=== PATIENT | female | born 1940 | race Caucasian/White ===

== ENCOUNTER 2016-07-30 13:50 | Inpatient (IN) | payer MEDICARE ==
[~2016-07-30] VITALS: Ht 165.1 cm; Wt 114.0 kg
[2016-07-31] MEDS ORDERED: COLA100C3 PO (11:21)
[2016-07-31] MEDS ORDERED: MULT-135 PO (11:21)
[2016-07-31] MEDS ORDERED: WARF-23 PO (11:21)
--- NOTE | 2016-08-01 14:46 | MH ---
cc: Ede GRIMALDO M.D. DATE OF ADMISSION: 08/06/2016 ADMITTING DIAGNOSIS Osteoarthritic degeneration left knee, now being admitted for left total knee arthroplasty. HISTORY OF PRESENT ILLNESS This pleasant 75-year-old female is being admitted today for left total knee arthroplasty due to severe painful osteoarthritic degeneration left knee. PAST MEDICAL HISTORY 1. Right total hip in August 2012; did develop a blood clot for which she is on Coumadin and stopped before surgery. 2. Stage II kidney disease. MEDICATIONS Current medications: 1. Coumadin 5 mg a day; which is stopped before surgery. 2. Colace. 3. Fiber Sure. 4. Multivitamins. 5. Benadryl. 6. Hydrocodone occasionally as needed for pain. PAST SURGICAL HISTORY Other than the hip replacement include: 1. Tonsillectomy 1952. 2. Hysterectomy 1976. REVIEW OF SYSTEMS Noncontributory. FAMILY HISTORY Noncontributory. SOCIAL HISTORY She does not smoke or drink. ALLERGIES No known allergies. PHYSICAL EXAMINATION GENERAL: We find a 75-year-old female, well-developed, well-nourished, oriented x3, complaining of pain in her left knee. VITAL SIGNS: Blood pressure 130/82, pulse 69 and regular, respirations 20, temperature 97.9, pulse oximetry 96% on room air. HEENT: PERRLA. EOMI. Ears, nose and mouth clear. NECK: Supple. LUNGS: Clear. HEART: Regular rate. ABDOMEN: Soft. Positive bowel sounds. Nontender. EXTREMITIES: Her left knee has crepitance on range of motion. She is neurovascularly intact to her toes. IMPRESSION The impression at this time is osteoarthritic degeneration left knee. PLAN Admission for left total knee arthroplasty today. The patient is given prescriptions for postoperative pain and anticoagulation control in the office, and was told to stop the Coumadin several days before surgery and will have a stat. repeat INR and PT on the day of admission. JMD ALONZO Monreal/ARNALDO /2:15 PM /2:29 PM
[2016-08-03] MEDS ORDERED: CORNPOW11 PO (14:24)
[2016-08-06] MEDS ORDERED: INSULIN HUMAN REGULAR 1,000 UNITS/10 ML VIAL SQ PRN (06:00)
[2016-08-06] MEDS ORDERED: METOPROLOL TARTRATE 25 MG TAB PO PRN (06:00)
[2016-08-06] MEDS: CHLORHEXIDINE GLUCONATE 4% SOLN 120 ML BTL TOP SCH (06:15)
[2016-08-06] MEDS: BUPIVACAINE LIPOSO PF 1.3% INJ 20 ML, BUPIVACAINE PF 0.25% INJ 20 ML in SODIUM CHLORIDE... P-ARTICULR SCH ×2 (07:00→11:17)
[2016-08-06] MEDS ORDERED: VITA100064 PO (07:00)
[2016-08-06 07:08] VITALS: BP 153/74; PULSE 76; RESP 20; TEMP 97.6; O2SAT 96
[2016-08-06 07:27] LABS: PROTHROMBIN TIME - PATIENT 10.7 SEC (9.8-11.6)
[2016-08-06 07:31] LABS: APTT (PATIENT) 25.7 SEC (24.3-30.1)
[2016-08-06] MEDS ORDERED: VANCOMYCIN 1000 MG/NS 250 ML (for <70 kg) IV SCH ×2 (08:00)
[2016-08-06] MEDS ORDERED: NALOXONE HCL 0.4 MG/ML AMP IV PRN (08:15)
[2016-08-06] MEDS ORDERED: diphenhydrAMINE HCL 50 MG/ML VIAL IV PRN (08:15)
[2016-08-06] MEDS ORDERED: SODIUM CHLORIDE 0.9% FLUSH 5 ML FLUSH IVF PRN (08:15)
[2016-08-06] MEDS ORDERED: Post-op Orders (for Pharmacy) MISC XX ONE (08:15)
[2016-08-06] MEDS ORDERED: TRANEXAMIC ACID INJ 0 MG in SODIUM CHLORIDE 0.9% INJ 100 ML IV SCH (08:15)
[2016-08-06] MEDS ORDERED: ACETAMINOPHEN 325 MG TAB PO PRN (08:15)
--- NOTE | 2016-08-06 08:18 | HHI.FF ---
Face to Face Verification Diagnosis: (1) Status post total left knee replacement Physical Therapy Gait training Knee: Total knee, Protocol: Left, Full weight bearing Canvas Knee Splint: When in bed & 2 pillows btw thighs Nursing RN: 3 days/week x 2 weeks Nursing: Lul teaching, Dressing changes Dressing Changes: Daily dressing change, 4x4s, Gauze, Paper tape I have seen patient Sharon Pa on 08/06/16. My clinical findings support the need for the requested home health care services because: Limited ability to care for self High risk of falls I certify that my clinical findings support that this patient is homebound because: Unsteady gait/balance Ede Marks MD Aug 06, 2016 08:18
[2016-08-06] MEDS ORDERED: MISC-163 (08:20)
[2016-08-06] MEDS ORDERED: CPMMACHINE (08:20)
[2016-08-06] MEDS ORDERED: WALKER WHEELS/F1 MIS (08:20)
[2016-08-06] MEDS ORDERED: ceFAZolin 2 GM PREMIX 50 ML IV SCH (08:30)
--- NOTE | 2016-08-06 08:51 | PD.CONS ---
HPI Service [facility] Hospitalists Consult Requested By Dr. Guillaume Marks Reason for Consult Medical Management Primary Care Physician Scottie Robertson MD Diagnoses: History of Present Illness Mrs. Pa is a pleasant 75 y/o female with osteoarthritis, CKD, stage II, hx of bilateral PE and previous DVT after right hip arthroplasty in 2012. Pt was admitted to [facility] for elective left knee total arthroplasty performed on with Dr. Marks. [facility] Hospitalist team was consulted to help with medical management. Pt takes Coumadin 5mg daily for her hx of DVT/PE and this has been held prior to surgery. Pt has Lovenox 30mg SQ Q12H ordered post-operatively. Pt is seen in PACU and is recovering well. Vital signs are stable. No complaints at the time of our examination. Review of Systems Constitutional: DENIES: Fever, Chills Respiratory: DENIES: Cough, Shortness of breath Cardiovascular: DENIES: Chest pain, Palpitations Gastrointestinal: DENIES: Abdominal pain, Nausea, Vomiting Genitourinary: DENIES: Hematuria Neurologic: DENIES: Headache Past Family Social History Past Medical History Bilateral DVT and PE in 2011 and DVT in 2012 after hip surgery Anxiety/Depression Osteoarthritis Low back pain/sciatica Past Surgical History Right total hip arthroplasty on 09/08/[address] Marks [facility] with BSO Right knee arthroscopy Tonsillectomy/Adenoidectomy Reported Medications Vitamin D 1,000 Units PO DAILY Fiber Powder 1 Pkt PO DAILY Multi Vitamin 1 Tab PO DAILY Warfarin 5 Mg PO DAILY Colace 100 Mg PO DAILY Allergies: Coded Allergies: No Known Allergies (Unverified , 08/06/16) Family History Noncontributory Social History Denies any alcohol, tobacco or illicit drug use Physical Exam Vital Signs Vital Signs Date Time Temp Pulse Resp B/P Pulse Ox O2 Delivery O2 Flow Rate FiO2 08/06/16 07:08 97.6 76 20 153/74 96 Physical Exam GENERAL: This is a well-nourished, well-developed patient, in no apparent distress. HEENT: Atraumatic. Normocephalic. No temporal or scalp tenderness. No scleral icterus. Airway patent. NECK: Trachea midline, supple, nontender. CARDIO: Regular. RESP: CTA bilaterally. No wheezes, rales, or rhonchi. ABD: +BS, soft, non-tender, nondistended. EXT: Extremities without clubbing, cyanosis, or edema. NEURO: Awake and alert. Motor and sensory grossly within normal limits. Normal speech. Laboratory Laboratory Tests Test 08/06/16 07:00 Prothrombin Time 10.7 Prothromb Time International 1.0 Ratio Activated Partial 25.7 Thromboplast Time Assessment and Plan Problem List: (1) Osteoarthritis of left knee Status: Chronic Plan: - Pt s/p left total knee arthroplasty on 08/06/[address] Marks - Post-op pain control per Ortho - PT daily - IS - Constipation precautions - DVT prophylaxis with Lovenox 30mg SQ Q12H ordered and will resume the pts Coumadin (2) History of DVT (deep vein thrombosis) Status: Chronic Plan: - Pt with hx of DVT and PE on Coumadin as an outpt (3) Chronic kidney disease Status: Chronic Plan: - Stable. - Monitor Assessment and Plan Patient examined. Assessment and plan formulated with Carole Clark PA-C. I agree with the above. Will resume coumadin 08/07/16 Problem Qualifiers (1) Chronic kidney disease: Qualified Code: N18.2 - Chronic kidney disease, stage 2 (mild) Carole Clark Aug 06, 2016 08:51 Thomas Kearney DO Aug 06, 2016 14:14
[2016-08-06] MEDS ORDERED: MIDAZOLAM HCL 5 MG/5 ML VIAL ONE (08:52)
[2016-08-06] MEDS: SODIUM CHLORIDE 0.9% FLUSH 5 ML FLUSH IVF SCH ×2 (09:00→21:00)
[2016-08-06] MEDS ORDERED: MULTIVITAMIN TAB PO SCH (09:00)
[2016-08-06] MEDS ORDERED: DOCUSATE SODIUM 100 MG CAP PO SCH (09:00)
[2016-08-06] MEDS ORDERED: MORPHINE SULFATE 30 MG/30 ML PCA IV SCH (09:00)
[2016-08-06] MEDS: CHOLECALCIFEROL (VIT D3) 1000 UNIT TAB PO SCH (09:00)
[2016-08-06] MEDS: PSYLLIUM FIBER SF/GF 6 GM POWD PKT PO SCH (09:15)
[2016-08-06] MEDS ORDERED: SODIUM CHLORID 0.9% 500 ML IV SCH (09:30)
[2016-08-06] MEDS: SODIUM CHLORIDE 0.9% IV SCH ×2 (09:30→11:08)
[2016-08-06] MEDS: TRANEXAMIC ACID IV SCH ×2 (09:30→11:08)
[2016-08-06] MEDS ORDERED: LACTATED RINGER'S 1000 ML IV SCH (09:30)
[2016-08-06] MEDS ORDERED: ceFAZolin INJ 1,000 MG VIAL XX ONE (11:28)
[2016-08-06] MEDS ORDERED: BUPIVACAINE HCL PF 0.5% 30 ML VIAL NB ONE (12:18)
[2016-08-06] MEDS ORDERED: BUPIVACAINE HCL PF 0.25% 30 ML VIAL NB ONE (12:18)
[2016-08-06] MEDS ORDERED: PROPOFOL 200 MG/20 ML AMP IV ONE (12:30)
[2016-08-06] MEDS ORDERED: TRANEXAMIC ACID IV SCH (12:30)
[2016-08-06] MEDS ORDERED: ePHEDrine/NS 50 MG/5 ML SYR IV ONE (12:30)
[2016-08-06] MEDS ORDERED: LACTATED RINGER'S 1000 ML INJ 1,000 ML IV ONE (12:30)
[2016-08-06] MEDS ORDERED: NEOSTIGMINE 3 MG/3 ML SYR IV ONE (12:30)
[2016-08-06] MEDS ORDERED: ONDANSETRON HCL 4 MG/2 ML VIAL IV PUSH ONE (12:30)
[2016-08-06] MEDS ORDERED: SODIUM CHLORIDE 0.9% IV SCH (12:30)
[2016-08-06] MEDS ORDERED: DO NOT ADM ANY ANTICOAGULANT DRUGS XX PRN (13:58)
[2016-08-06] MEDS: PCA - TOTAL MG MORPHINE DELIVERED PER SHIFT SCH ×2 (14:00→22:00)
[2016-08-06] MEDS ORDERED: fentaNYL CITRATE 250 MCG/5 ML AMP ONE (14:03)
--- NOTE | 2016-08-06 15:06 | RADRPT ---
EXAM DATE/TIME: 08/06/2016 14:21 [place] COMPARISON: No previous studies available for comparison. INDICATIONS : Eval post total left knee replacement MEDICAL HISTORY : None. SURGICAL HISTORY : Total knee replacement, left. ENCOUNTER: Initial ACUITY: 1 day PAIN SCORE: 4/10 LOCATION: Left Knee FINDINGS: AP and lateral views of the knee following arthroplasty reveals a prosthesis in anatomic alignment. F racture is not appreciated. Surgical drain is evident CONCLUSION: Status post total knee arthroplasty. Angel Nur MD FACR Board Certified Radiologist. This report was verified electronically.
[2016-08-06] MEDS: LACTATED RINGER'S 1000 ML INJ 1,000 ML IV SCH (15:49)
[2016-08-06 16:19] VITALS: BP 135/63; PULSE 87; RESP 18; TEMP 96; O2SAT 99
[2016-08-06 20:00] VITALS: BP 136/64; PULSE 81; RESP 17; TEMP 96.1; O2SAT 100
[2016-08-07] VITALS (7 sets, daily range): BP systolic 100–137; BP diastolic 55–63; PULSE 91–103; RESP 16–18; TEMP 97.2–99.3; O2SAT 95–100
[2016-08-07] MEDS: LACTATED RINGER'S 1000 ML INJ 1,000 ML IV SCH ×3 (00:03→22:30)
[2016-08-07] MEDS: ONDANSETRON HCL 4 MG/2 ML VIAL IVP PRN ×2 (00:03→09:45)
[2016-08-07] MEDS ORDERED: PADIMATE (CHAPSTICK) 4.5 GM TUBE TOPICAL PRN (00:30)
[2016-08-07 05:19] LABS: HEMATOCRIT 34.2 % (35.0-46.0); REVIEW FLAG FINAL
[2016-08-07] MEDS: PCA - TOTAL MG MORPHINE DELIVERED PER SHIFT SCH ×3 (05:49→21:58)
[2016-08-07] MEDS: CHLORHEXIDINE GLUCONATE 4% SOLN 120 ML BTL TOP SCH (06:15)
[2016-08-07] MEDS: PSYLLIUM FIBER SF/GF 6 GM POWD PKT PO SCH (09:46)
[2016-08-07] MEDS: SODIUM CHLORIDE 0.9% FLUSH 5 ML FLUSH IVF SCH ×2 (09:46→20:15)
[2016-08-07] MEDS: CHOLECALCIFEROL (VIT D3) 1000 UNIT TAB PO SCH (09:47)
[2016-08-07] MEDS ORDERED: INFLUENZA VIRUS VACCINE (QUADRIVALENT) 0.5 ML SYR IM ONE (10:00)
--- NOTE | 2016-08-07 10:33 | PD.ORT.PN ---
Subjective Subjective Remarks patient painful today and nauseated. Objective Vitals Vital Signs Date Time Temp Pulse Resp B/P Pulse Ox O2 Delivery O2 Flow Rate FiO2 08/07/16 08:37 99 Nasal Cannula 3.00 08/07/16 07:37 99.3 98 17 123/56 98 08/07/16 05:49 20 08/07/16 04:00 99.3 99 17 137/63 98 08/07/16 00:00 97.8 95 17 129/59 100 08/06/16 22:00 20 08/06/16 21:30 Nasal Cannula 3.00 08/06/16 20:00 96.1 81 17 136/64 100 08/06/16 18:30 Nasal Cannula 2.00 08/06/16 16:19 96.0 87 18 135/63 99 08/06/16 16:00 97.8 83 15 140/65 98 Nasal Cannula 2 08/06/16 15:30 82 15 141/64 98 Nasal Cannula 2 08/06/16 15:28 15 08/06/16 15:00 90 15 140/64 98 Nasal Cannula 2 08/06/16 14:45 89 16 140/65 97 Nasal Cannula 2 08/06/16 14:30 81 16 142/66 96 Nasal Cannula 2 08/06/16 14:15 90 15 139/65 97 Nasal Cannula 2 08/06/16 14:00 18 08/06/16 13:58 97.4 91 15 143/71 95 Nasal Cannula 2 I/O 08/06/16 08/06/16 08/06/16 08/07/16 08/07/16 08/07/16 07:00 15:00 23:00 07:00 15:00 23:00 Intake Total 1100 ml 490 ml 1574 ml Output Total 100 ml 0 ml 300 ml Balance 1000 ml 490 ml 1274 ml Intake Oral 240 ml 240 ml IV Total 250 ml 1334 ml Other 1100 ml Output Urine Total 0 ml 0 ml 300 ml Estimated Blood Loss 100 ml # Voids 2 1 # Bowel Movements 0 0 Result Diagram: 08/07/16 0447 Objective Remarks Dressing dry and intact. Block wearing off. No calf tenderness. Assessment & Plan Ortho Post Op Day #: 1 Problem List: Assessment and Plan OOB, PT, wound care. 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 Ede Marks MD Aug 07, 2016 10:33
[2016-08-07] MEDS: ENOXAPARIN SODIUM 30 MG/0.3 ML SYRINGE SQ SCH (13:20)
[2016-08-07] MEDS: ACETAMINOPHEN/HYDROcodone 325 MG/7.5 MG TAB PO PRN ×3 (13:31→21:58)
[2016-08-07] MEDS: WARFARIN SOD 5 MG TAB PO SCH (15:31)
[2016-08-07] MEDS: MULTIVITAMINS/MINERALS THERAPEUTIC TAB PO SCH (20:15)
[2016-08-07] MEDS: DOCUSATE SODIUM 100 MG CAP PO SCH (20:15)
[2016-08-07] MEDS: TEMAZEPAM 15 MG CAP PO PRN (20:19)
[2016-08-08] VITALS: BP 118/56; PULSE 92; RESP 16; TEMP 96.8; O2SAT 94
[2016-08-08] MEDS: ENOXAPARIN SODIUM 30 MG/0.3 ML SYRINGE SQ SCH ×2 (00:12→12:29)
[2016-08-08] MEDS: PCA - TOTAL MG MORPHINE DELIVERED PER SHIFT SCH ×3 (04:51→22:00)
[2016-08-08] MEDS: CHLORHEXIDINE GLUCONATE 4% SOLN 120 ML BTL TOP SCH (04:52)
[2016-08-08] MEDS: ACETAMINOPHEN/HYDROcodone 325 MG/7.5 MG TAB PO PRN ×4 (06:30→21:46)
[2016-08-08 06:51] LABS: AUTOMATED NEUTROPHIL # 5.4 TH/MM3 (1.8-7.7); BASOPHIL % 0.4 % (0.0-2.0); EOSINOPHIL # 0.1 TH/MM3 (0-0.4); EOSINOPHIL % 1.6 % (0.0-4.0); HEMATOCRIT 33.6 % (35.0-46.0); HEMO FLAGS DIFF FINAL; LYMPH % 22.1 % (9.0-44.0); LYMPHOCYTE # 1.8 TH/MM3 (1.0-4.8); MEAN CELL VOLUME 95.2 FL (80.0-100.0); MEAN CORPUSCULAR HEMOGLOBIN 30.8 PG (27.0-34.0); MEAN CORPUSCULAR HGB CONC 32.3 % (32.0-36.0); MONO % 11.3 % (0.0-8.0); NEUT % 64.6 % (16.0-70.0); PLATELET COUNT 182 TH/MM3 (150-450); RED BLOOD COUNT 3.53 MIL/MM3 (4.00-5.30); RED CELL DISTRIBUTION WIDTH 14.2 % (11.6-17.2); WHITE BLOOD COUNT 8.3 TH/MM3 (4.0-11.0)
[2016-08-08 06:58] LABS: HEMATOCRIT 33.3 % (35.0-46.0); REVIEW FLAG FINAL
[2016-08-08 08:00] VITALS: BP 104/57; PULSE 100; RESP 16; TEMP 97.7; O2SAT 92
--- NOTE | 2016-08-08 08:22 | PD.ORT.PN ---
Subjective Subjective Remarks patient still painful today Objective Vitals Vital Signs Date Time Temp Pulse Resp B/P Pulse Ox O2 Delivery O2 Flow Rate FiO2 08/08/16 00:00 96.8 92 16 118/56 94 08/07/16 20:56 Room Air 08/07/16 20:00 97.2 103 16 115/56 95 08/07/16 15:24 98.0 93 18 100/55 95 08/07/16 13:18 18 08/07/16 11:32 98.8 91 17 126/58 96 08/07/16 09:55 98 Room Air 08/07/16 08:37 99 Nasal Cannula 3.00 I/O 08/07/16 08/07/16 08/07/16 08/08/16 08/08/16 08/08/16 07:00 15:00 23:00 07:00 15:00 23:00 Intake Total 1574 ml 2064 ml 240 ml 240 ml Output Total 300 ml 150 ml Balance 1274 ml 1914 ml 240 ml 240 ml Intake Oral 240 ml 120 ml 240 ml 240 ml IV Total 1334 ml 1944 ml Output Urine Total 300 ml 150 ml # Voids 1 1 1 2 # Bowel Movements 0 0 0 0 Result Diagram: 08/08/16 0538 Other Results Laboratory Tests Test 08/08/16 05:38 Prothrombin Time 11.0 SEC (9.8-11.6) Prothromb Time International 1.0 RATIO Ratio Objective Remarks Dressing dry and intact. Block worn off. No calf tenderness. Assessment & Plan Ortho Post Op Day #: 2 Problem List: Assessment and Plan OOB, PT, wound care. Ede Marks MD Aug 08, 2016 08:22
[2016-08-08] MEDS: SODIUM CHLORIDE 0.9% FLUSH 5 ML FLUSH IVF SCH ×2 (09:00→20:10)
[2016-08-08] MEDS: MULTIVITAMINS/MINERALS THERAPEUTIC TAB PO SCH ×2 (09:40→20:10)
[2016-08-08] MEDS: DOCUSATE SODIUM 100 MG CAP PO SCH ×2 (09:40→20:10)
[2016-08-08] MEDS: PSYLLIUM FIBER SF/GF 6 GM POWD PKT PO SCH (09:40)
[2016-08-08] MEDS: CHOLECALCIFEROL (VIT D3) 1000 UNIT TAB PO SCH (09:40)
[2016-08-08] MEDS ORDERED: BACITRACIN OINT 0.9 GM PKT TOP PRN (10:15)
[2016-08-08] MEDS: LACTATED RINGER'S 1000 ML INJ 1,000 ML IV SCH ×2 (11:00→23:30)
[2016-08-08 11:51] VITALS: BP 130/53; PULSE 89; RESP 17; TEMP 97; O2SAT 91
[2016-08-08 16:05] VITALS: BP 125/58; PULSE 90; RESP 16; TEMP 96; O2SAT 94
[2016-08-08] MEDS: WARFARIN SOD 5 MG TAB PO SCH (17:17)
[2016-08-08 20:00] VITALS: BP 129/58; PULSE 94; RESP 16; TEMP 97.1; O2SAT 93
[2016-08-08] MEDS: TEMAZEPAM 15 MG CAP PO PRN (20:10)
--- NOTE | 2016-08-08 23:55 | MP ---
cc: Yu GRIMALDO. DATE OF SURGERY: 08/06/2016 PREOPERATIVE DIAGNOSIS: Osteoarthritic degeneration left knee. POSTOPERATIVE DIAGNOSIS: Osteoarthritic degeneration left knee. SURGERY PERFORMED Left total knee arthroplasty using Consensus components size 2 patella, 4 femur, 2 tibia with a 10 millimeter insert, two batches of cobalt blue cement. SURGEON Dr. Grimaldo FIRE SPRINKLER DESIGNER: AMANDA Rios Medical student: FRED Winter ANESTHESIA General intubation and block. PROCEDURE: After successful induction of anesthesia, the patient is placed on the operating room table in the supine position. The knee is prepped and draped in the usual manner. A tourniquet is inflated at the upper thigh and set to 300 mmHg pressure after exsanguination of the lower extremity. A longitudinal incision is made extending from 3 inches proximal to the superior pole of the patella, across the patella in longitudinal fashion, and down past the insertion of the tibial tubercle into the proximal tibia. The incision is carried down through subcutaneous tissue along the medial aspect of the patella and retinaculum, down through the capsule to expose the knee joint. The patella and patellar tendon are freed up enough to allow the patella to be inverted and retracted off the lateral side of the knee joint. The knee joint is left exposed. Small osteophytes are removed. All soft tissue is removed to allow proper position of the femoral and tibial cutting jig guide. The first femoral jig is then inserted along the distal end of the femur after first measuring to decide whether this is a small, medium, or large component. The notch is then drilled and the tibial cutting guide inserted into the femoral cutting guide, along with the ankle brace to allow for proper measurement of the tibial cutting surface that needed to be resected. Pins are inserted into the tibial cutting jig and femoral cutting jig to hold them in place. An oscillating saw is then used to resect the surface of the tibia. The surface of the tibia is then completely removed using sharp and blunt dissection. The anterior and posterior cuts of the femur are then made as well using an oscillating saw through the cutting guide. All guides are then removed and the varus/valgus angulation cutting guide applied to the femur for proper measurement of the proper amount of valgus. The anterior cutting guide for the femur is then inserted at the anterior femoral cuts made. Next, the first block trial is inserted into the femur to allow for proper condyle drill holes to be made which are then made followed by removal of the bone between the condyles using an oscillating saw as well as the bone removed at the most posterior surface of the condyle. After this, the guide is removed and the chamfer cuts made using the chamfer cutting guide from both anterior and posterior. Next, the femoral trial is then inserted, the tibial surface reflected anterior to expose the tibial surface and a tibial stem guide is inserted after first measuring for a standard, standard plus, large, or large plus surface to be used. After the stem is impacted the trial tibial surface is applied followed by the trial meniscal components. After full range of motion is found with the appropriate length meniscal components varying the patella is prepared by resecting the posterior aspect of the patella using an oscillating saw, inserting a trial. The trial is then removed and the cruciate cutting guide applied using the bur to cut the cruciate cuts. After cruciate cuts are made all trials are removed. The wound is irrigated copiously with antibiotic solution and Water Pik and the actual components inserted into place using: Consensus components, (prefabricated cutting jig), size 2 patella, 4 femur, 2 tibia with a 10 millimeter insert, two batches of cobalt blue cement. After the cement has hardened and the components are found to have full range of motion with no instability, the tourniquet is deflated, total tourniquet time being 64 minutes at 300 mmHg pressure. Lateral retinacular release was needed to perform along with releasing the lateral collateral ligaments and also removal of the remains of the anterior cruciate reconstruction prior to inserting the components. Meticulous hemostasis achieved, 120 cc of Exparel with 0.25% Marcaine plain injected around the knee joint for extra pain control. No drain utilized. The deep fascia approximated with running #2 Quill, subcutaneous tissue approximated using interrupted running 3-0 and 4-0 Monocryl suture and Steri-Strips, sterile dressing, followed by knee immobilizer. Estimated blood loss: 100 cc. Sponge and suture count correct. The patient tolerated the procedure well and left the operating room in satisfactory condition. JMD ALONZO Monreal/ROBERTO /1:11 PM 11:45 PM
[2016-08-09 00:08] VITALS: BP 130/57; PULSE 102; RESP 19; TEMP 98.4; O2SAT 92
[2016-08-09 00:09] VITALS: BP 130/57; PULSE 102; RESP 19; TEMP 98.4; O2SAT 92
[2016-08-09 00:15] VITALS: BP 130/57; PULSE 102; RESP 19; TEMP 98.4; O2SAT 92
[2016-08-09] MEDS: ENOXAPARIN SODIUM 30 MG/0.3 ML SYRINGE SQ SCH ×2 (01:00→15:15)
[2016-08-09] MEDS: ACETAMINOPHEN/HYDROcodone 325 MG/7.5 MG TAB PO PRN ×3 (05:59→15:15)
[2016-08-09 08:00] VITALS: BP 121/55; PULSE 90; RESP 16; TEMP 97.5; O2SAT 95
[2016-08-09] MEDS: PSYLLIUM FIBER SF/GF 6 GM POWD PKT PO SCH (09:00)
--- NOTE | 2016-08-09 09:29 | PD.PN.STU ---
Subjective Remarks 75 yo female s/p left total knee replacement POD#3. She c/o some constipation and has not yet had a bowel movement despite the use of Metamucil daily. She does report flatus. She uses a fiber supplement every other day at home. She has voided several times. She states her pain level is a 4/10 constantly and a 10/10 when she attempts to stand. She has gotten out of bed, and ambulated across the room with PT but feels she is limited due to pain. She states this recovery is much more painful than her hip replacement and feels her recovery would be facilitated if she went to inpatient physical rehab prior to in-home rehab as previously planned. She denies any fever, chills, nausea, vomiting, chest pain, shortness of breath or abdominal pain. Objective Vitals Vital Signs Date Time Temp Pulse Resp B/P Pulse Ox O2 Delivery O2 Flow Rate FiO2 08/09/16 08:00 97.5 90 16 121/55 95 08/09/16 00:15 98.4 102 19 130/57 92 08/09/16 00:09 98.4 102 19 130/57 92 08/09/16 00:08 98.4 102 19 130/57 92 08/08/16 20:00 97.1 94 16 129/58 93 08/08/16 18:47 Room Air 08/08/16 16:05 96.0 90 16 125/58 94 08/08/16 14:20 20 08/08/16 11:51 97.0 89 17 130/53 91 I/O 08/08/16 08/08/16 08/08/16 08/09/16 08/09/16 08/09/16 07:00 15:00 23:00 07:00 15:00 23:00 Intake Total 240 ml 480 ml 480 ml 480 ml Balance 240 ml 480 ml 480 ml 480 ml Intake Oral 240 ml 480 ml 480 ml 480 ml # Voids 2 3 2 3 # Bowel Movements 0 0 0 0 Result Diagram: 08/08/16 0538 Objective Remarks General: Well developed, well nourished female, alert and cooperative in NAD. Cardiac: Regular rate & rhythm. S1, S2. No rubs, murmurs or gallops.No peripheral edema, cyanosis or pallor. Extremities are warm and well perfused. Radial and pedal pulses palpable. Capillary refill < 3 seconds. No carotid bruits. Pulmonary: Clear to auscultation bilaterally. No wheezes, rales, rhonchi. Abdomen: Bowel sounds heard in all 4 quadrants. Soft. No tenderness to palpation , no guarding or rebound. Musculoskeletal: Limited motion of left lower extremity due to pain. No joint tenderness. She is able to wiggle toes and move both ankles. Normal sensation. Capillary refil <3 seconds. Skin: Skin normal color. No redness or swelling. A/P Assessment and Plan 75 yo C female s/p total left knee replacement POD#3 with 1. Constipation - order suppository - await bowel movement prior to discharge to inpatient physical rehab - continue PT until discharge Svitlana Shaw Aug 09, 2016 09:29 Ede Marks MD Aug 09, 2016 10:23
[2016-08-09] MEDS: DOCUSATE SODIUM 100 MG CAP PO SCH (09:42)
[2016-08-09] MEDS: SODIUM CHLORIDE 0.9% FLUSH 5 ML FLUSH IVF SCH (09:42)
[2016-08-09] MEDS: CHOLECALCIFEROL (VIT D3) 1000 UNIT TAB PO SCH (09:42)
[2016-08-09] MEDS: MULTIVITAMINS/MINERALS THERAPEUTIC TAB PO SCH (09:42)
[2016-08-09] MEDS ORDERED: HYDR-3580 PO (10:20)
--- NOTE | 2016-08-09 10:37 | HHI.DS ---
Discharge Summary Admission Date Aug 06, 2016 at 05:29 Discharge Date: Aug 09, 2016 Admitting Diagnosis osteoarthritic degenration left knee Diagnosis: (1) Status post total left knee replacement Diagnosis: Principal Brief History This is a 75 year old female patient CBC/BMP: 08/08/16 0538 Significant Findings Laboratory Tests Test 08/07/16 08/08/16 04:47 05:38 Hemoglobin 11.3 GM/DL 10.8 GM/DL (11.6-15.3) (11.6-15.3) Hematocrit 34.2 % 33.6 % (35.0-46.0) (35.0-46.0) Red Blood Count 3.53 MIL/MM3 (4.00-5.30) Monocytes (%) (Auto) 11.3 % (0.0-8.0) PE at Discharge Dressing dry and intact. Block worn off. No calf tenderness. Hospital Course The patient underwent a total knee arthroplasty of the left knee on the day of admission. She received a course of prophylactic IV antibiotics and within 23 hours started on anticoagulation therapy. She continued to improve was taken off the pain pump today after surgery and placed on by mouth pain meds which she tolerated well. She tolerated food and fluids well continued to improve. She remained afebrile vital signs stable and neurovascularly intact. She received daily wound care and physical therapy twice a day. On the third postoperative day she was discharged to halfway facility in good condition with instructions to continue physical therapy daily wound care and anticoagulation therapy. Pt Condition on Discharge: Good Discharge Disposition: Discharge to SNF Discharge Instructions Diet Instructions: As Tolerated, No Restrictions Activities You Can Perform: Full Weight Bearing, Shower Only-No Bath Activities to Avoid: Bathing, Driving Ede Marks MD Aug 09, 2016 10:37
[2016-08-09] MEDS ORDERED: BISACODYL 10 MG SUPP RECTAL ONE (11:00)
[2016-08-09] MEDS ORDERED: MAGNESIUM HYDROXIDE SUSP 30 ML CUP PO ONE (11:00)
[2016-08-09] MEDS ORDERED: LACTULOSE SYRUP 20 GM/30 ML CUP PO ONE (11:00)
[2016-08-09 12:00] VITALS: BP 129/64; PULSE 84; RESP 16; TEMP 97.2; O2SAT 96
[2016-08-09] MEDS: LACTATED RINGER'S 1000 ML INJ 1,000 ML IV SCH (12:00)
[2016-08-09] MEDS: WARFARIN SOD 5 MG TAB PO SCH (15:15)
== END 2016-08-09 17:27 | DRG 470 ==
LOC: HSDI 08-06 05:29 → N06A 08-06 16:32
PROVIDERS: ADMIT Surgery; ATTEND Surgery
PROC: 3E0T3CZ (ICD-10-PCS; 2016-08-06)
PROC: 0SRD0J9 Replacement of Left Knee Joint with Synthetic Substitute, Cemented, Open Approach (ICD-10-PCS; principal; 2016-08-06 10:42)
DX: M17.12 Unilateral primary osteoarthritis, left knee (principal); F32.9 Major depressive disorder, single episode, unspecified; N18.2 Chronic kidney disease, stage 2 (mild); M54.40 Lumbago with sciatica, unspecified side; F41.9 Anxiety disorder, unspecified; K59.00 Constipation, unspecified; Z96.641 Presence of right artificial hip joint; Z79.01 Long term (current) use of anticoagulants; Z86.711 Personal history of pulmonary embolism; Z86.718 Personal history of other venous thrombosis and embolism
CPT/HCPCS: 73560; 85014; 85018; 85025; 85610; 85730; 86850; 86900; 86901; 94150; C1776; C9290; J0690; J1650; J2250; J2270; J2405; J2710; J3010; J3370; J7050; J7120; L1830

== ENCOUNTER → 2016-07-31 | Outpatient (CLI) | payer MEDICARE ==
[~2016-07-31] MED LIST: COLA100C3 PO; CORNPOW11 PO; COUM5TAB PO; CPMMACHINE; HYDR-3580 PO; MISC-163; MULT-135 PO; STOO100T PO; TAB-TAB PO; VITA100064 PO; WALKER WHEELS/F1 MIS; WARF-23 PO
[2016-07-31 12:20] LABS: AUTOMATED NEUTROPHIL # 3.5 TH/MM3 (1.8-7.7); BASOPHIL % 0.6 % (0.0-2.0); EOSINOPHIL # 0.1 TH/MM3 (0-0.4); HEMATOCRIT 40.2 % (35.0-46.0); HEMO FLAGS DIFF FINAL; LYMPH % 37.7 % (9.0-44.0); LYMPHOCYTE # 2.5 TH/MM3 (1.0-4.8); MEAN CELL VOLUME 92.9 FL (80.0-100.0); MEAN CORPUSCULAR HEMOGLOBIN 30.5 PG (27.0-34.0); MEAN CORPUSCULAR HGB CONC 32.9 % (32.0-36.0); MONO % 7.1 % (0.0-8.0); NEUT % 52.6 % (16.0-70.0); PLATELET COUNT 237 TH/MM3 (150-450); RED BLOOD COUNT 4.33 MIL/MM3 (4.00-5.30); RED CELL DISTRIBUTION WIDTH 14.3 % (11.6-17.2); WHITE BLOOD COUNT 6.7 TH/MM3 (4.0-11.0)
[2016-07-31 12:32] LABS: APTT (PATIENT) 41.1 SEC (24.3-30.1); INTERNATIONAL NORMALIZED RATIO 3.1 RATIO; PROTHROMBIN TIME - PATIENT 35.9 SEC (9.8-11.6)
[2016-07-31 13:01] LABS: ALT (GPT) 29 U/L (10-53); ANION GAP 3 MEQ/L (5-15); AST (GOT) 16 U/L (15-37); BICARBONATE 31.6 MEQ/L (21.0-32.0); BLOOD UREA NITROGEN 23 MG/DL (7-18); CHLORIDE 109 MEQ/L (98-107); GLOMERULAR FILTRATION RATE 50 ML/MIN (>89); GLUCOSE,FASTING 120 MG/DL (74-99); POTASSIUM 3.8 MEQ/L (3.5-5.1); SODIUM (NA) 144 MEQ/L (136-145)
[2016-07-31 13:04] LABS: ALKALINE PHOSPHATASE 67 U/L (45-117); TOTAL BILIRUBIN ADULT 0.3 MG/DL (0.2-1.0)
--- NOTE | 2016-07-31 14:07 | EKG ---
Date Performed: 07/31/2016 Time Performed: 10:57:17 PTAGE: 75 years EKG: Sinus rhythm NORMAL ECG Since PREVIOUS TRACING , no significant change noted DOCTOR: Scott Gudino Interpretating Date/Time 07/31/2016 14:00:17
[2016-07-31 14:15] LABS: BACTERIA, URINE RARE /hpf; BLOOD, URINE NEG (NEG); GLUCOSE,URINE NEG (NEG); KETONE, URINE NEG (NEG); MUCUS URINE FEW /lpf (OCC); NITRITE,URINE NEG (NEG); SQUAMOUS EPITHELIAL CELL URINE <1 /hpf (0-5); URINE COLOR YELLOW (YELLW/STRAW)
[2016-07-31 14:17] LABS: COMMENT (UR) CATH-CULTURE IND; CULTURE IF INDICATED CATH CULTURE IND
== END ==
LOC: CPRE 10:24
PROVIDERS: ATTEND Surgery
DX: Z01.810 Encounter for preprocedural cardiovascular examination (principal); Z01.812 Encounter for preprocedural laboratory examination; B95.4 Other streptococcus as the cause of diseases classified elsewhere; R82.90 Unspecified abnormal findings in urine
CPT/HCPCS: 36415; 80053; 81001; 85025; 85610; 85730; 87086; 93005